=== PATIENT | male | born 1975 ===

== ENCOUNTER 2023-07-15 03:42 | Emergency (ER) | payer BC ==
[2023-07-15] MEDS: Ketorolac 30 MG/ML SDV IM ONE (03:57)
[2023-07-15] MEDS: Acetaminophen/oxyCODONE 325-5 MG Tab PO ONE (03:58)
[2023-07-15 04:13] LABS: BASOPHILS ABSOLUTE AUTO 0.02 K/uL (0.00-0.20); BASOPHILS PERCENT AUTO 0.2 % (0.0-2.0); EOSINOPHILS ABSOLUTE AUTO 0.17 K/uL (0.00-0.50); EOSINOPHILS PERCENT AUTO 1.8 % (0.0-5.0); HEMATOCRIT 45.2 % (39.0-49.0); HEMOGLOBIN 15.4 g/dL (13.1-16.8); LYMPHOCYTES ABSOLUTE AUTO 1.23 K/uL (0.50-3.50); LYMPHOCYTES PERCENT AUTO 12.8 % (10.0-50.0); MEAN CORPUSCULAR HEMOGLOBIN 33.7 pg (28.2-33.3); MEAN CORPUSCULAR HGB CONC 34.1 g/dL (31.7-36.0); MEAN CORPUSCULAR VOLUME 98.9 fL (84.0-98.0); MONOCYTES ABSOLUTE AUTO 0.57 K/uL (0.00-1.00); MONOCYTES PERCENT AUTO 5.9 % (2.0-14.0); NEUTROPHILS ABSOLUTE AUTO 7.64 K/uL (1.40-7.00); NEUTROPHILS PERCENT AUTO 79.3 % (45.0-80.0); PLATELET COUNT,PLT 212 K/uL (150-350); RED BLOOD CELL COUNT 4.57 M/uL (4.33-5.41); RED CELL DISTRIBUTION WIDTH 12.9 % (11.2-14.1); WHITE BLOOD CELL COUNT,WBC 9.6 K/uL (4.0-10.2)
[2023-07-15 04:33] LABS: ALANINE AMINOTRANSFERASE,ALT 20 U/L (12-78); ALBUMIN 3.9 g/dL (3.4-5.0); ALKALINE PHOSPHATASE 78 IU/L (46-116); ANION GAP 12.3 meq/L (7-15); ASPARTATE AMNIOTRANSFERASE,AST 17 U/L (15-37); BILIRUBIN TOTAL 0.4 mg/dL (0.2-1.0); BLOOD UREA NITROGEN,BUN 8 mg/dL (7-18); CALCIUM 8.7 mg/dL (8.5-10.1); CARBON DIOXIDE,CO2 24.7 mmol/L (21.0-32.0); CHLORIDE,CL 103 mmol/L (98-107); ESTIMATED GFR 105 mL/min (>=60); GLUCOSE RANDOM 105 mg/dL (70-99); POTASSIUM,K 4.4 mmol/L (3.5-5.1); PROTEIN TOTAL,TP 7.3 g/dL (6.4-8.2); SODIUM,NA 140 mmol/L (136-145)
== END 2023-07-15 05:56 | disposition home or self-care (01) ==
LOC: LL.ED 03:42 → MERGE 03:42 → LL.ED 05:56
DX: S22.42XA Multiple fractures of ribs, left side, initial encounter for closed fracture (principal); F17.210 Nicotine dependence, cigarettes, uncomplicated; W00.9XXA Unspecified fall due to ice and snow, initial encounter; Y92.009 Unspecified place in unspecified non-institutional (private) residence as the place of occurrence of the external cause
CPT/HCPCS: 36415; 71101-LT; 80053; 85025; 96372; 99283; A9270-GY; J1885

== ENCOUNTER 2023-07-25 08:09 | Emergency (ER) | payer BC ==
[2023-07-25] MEDS ORDERED: Lactulose Soln 10 GM/15 ML 30 ML UD Cup PO ONE (09:31)
== END 2023-07-25 10:00 | disposition home or self-care (01) ==
LOC: LL.ED 08:09
DX: K59.03 Drug induced constipation (principal)
CPT/HCPCS: 74019; 99283; A9270

== ENCOUNTER 2025-06-15 03:58 | Emergency (ER) | payer BC ==
[2025-06-15] MEDS ORDERED: Amiodarone 150 MG/3 ML SDV IVPUSH ONE ×2 (04:03→04:13)
[2025-06-15] MEDS ORDERED: Amiodarone 150 MG/3 ML SDV ONE (04:45)
[2025-06-15 05:04] LABS: ALANINE AMINOTRANSFERASE,ALT 42 U/L (12-78); ASPARTATE AMNIOTRANSFERASE,AST 36 U/L (15-37); BILIRUBIN TOTAL 0.3 mg/dL (0.2-1.0); BLOOD UREA NITROGEN,BUN 8 mg/dL (7-18); CARBON DIOXIDE,CO2 22.7 mmol/L (21.0-32.0); CHLORIDE,CL 105 mmol/L (98-107); CREATININE 1.51 mg/dL (0.51-1.17); ESTIMATED GFR 56 mL/min (>=60); GLUCOSE RANDOM 181 mg/dL (70-99); POTASSIUM,K 3.2 mmol/L (3.5-5.1); PROTEIN TOTAL,TP 7.1 g/dL (6.4-8.2); SODIUM,NA 148 mmol/L (136-145)
[2025-06-15 05:05] LABS: BASOPHILS ABSOLUTE AUTO 0.06 K/uL (0.00-0.20); BASOPHILS PERCENT AUTO 0.5 % (0.0-2.0); EOSINOPHILS ABSOLUTE AUTO 0.41 K/uL (0.00-0.50); EOSINOPHILS PERCENT AUTO 3.4 % (0.0-5.0); IMMATURE GRAN ABSOLUTE AUTO 0.24 10^3/uL (0.00-0.04); IMMATURE GRAN PERCENT AUTO 2.0 % (0.0-0.4); LYMPHOCYTES ABSOLUTE AUTO 6.40 K/uL (0.50-3.50); LYMPHOCYTES PERCENT AUTO 53.2 % (10.0-50.0); MONOCYTES ABSOLUTE AUTO 1.02 K/uL (0.00-1.00); MONOCYTES PERCENT AUTO 8.5 % (2.0-14.0); NEUTROPHILS ABSOLUTE AUTO 3.91 K/uL (1.40-7.00); NEUTROPHILS PERCENT AUTO 32.4 % (45.0-80.0); PLATELET COUNT,PLT 200 K/uL (150-350); RED BLOOD CELL COUNT 5.04 M/uL (4.33-5.41); RED CELL DISTRIBUTION WIDTH 12.2 % (11.2-14.1); WHITE BLOOD CELL COUNT,WBC 12.0 K/uL (4.0-10.2)
== END 2025-06-15 14:22 | disposition expired ==
LOC: LL.ED 03:58
DX: I46.9 Cardiac arrest, cause unspecified (principal); I21.9 Acute myocardial infarction, unspecified; Z79.899 Other long term (current) drug therapy
CPT/HCPCS: 31500; 36415; 80053; 85025; 92950; 92960; 99285; 99291-25; J0168; J0282